=== PATIENT | male | born 1980 | race African-American/Black ===

== ENCOUNTER 2016-12-14 23:02 | Observation (INO) | payer MEDICAID ==
[~2016-12-14] VITALS: Ht 182.9 cm; Wt 88.0 kg
[~2016-12-14 23:02] MED LIST: ALBU.5I NEB; ALBUAER3 INH; MONT10TA2 PO; PRED20 PO; SYMB80AE INH
[2016-12-14 23:03] VITALS: BP 147/86; PULSE 109; RESP 20; TEMP 99.8; O2SAT 100
[2016-12-15] VITALS (9 sets, daily range): BP systolic 128–148; BP diastolic 63–96; PULSE 86–110; RESP 16–20; TEMP 97.5–99; O2SAT 93–99
[2016-12-15] MEDS ORDERED: methylPREDNISolone SOD SUCC 125 MG/2 ML VIAL IVP ONE
[2016-12-15] MEDS: RESP: ALBUTEROL 2.5 MG/IPRATROPIUM 0.5 MG NEB (SCH) INH ×2 (00:02→00:03)
--- NOTE | 2016-12-15 00:04 | RADRPT ---
EXAM DATE/TIME: 12/14/2016 23:45 [place] COMPARISON: CHEST SINGLE AP, July 18, 2016, 17:31. INDICATIONS : Chest pain. MEDICAL HISTORY : None. SURGICAL HISTORY : None. ENCOUNTER: Initial ACUITY: 3 days PAIN SCORE: 7/10 LOCATION: Bilateral chest FINDINGS: There is vague opacity in the medial right lung base and in the lateral left lung base, potentially e leo infiltrates. No evidence of effusion. Cardiac contours are satisfactory. CONCLUSION: Mild basilar parenchymal opacities Cornell Avalos MD on December 15, 2016 at 0:01 Board Certified Radiologist. This report was verified electronically.
--- NOTE | 2016-12-15 00:10 | PD ---
HPI Chief Complaint: Respiratory Symptoms Time Seen by Provider: 23:27 Travel History International Travel<30 days: No Contact w/Intl Traveler<30days: No Traveled to known affect area: No History of Present Illness HPI The patient is a 36 year old male who presents to the [facility] emergency department with a history of shortness of breath, wheezing, dry cough that began 3 days ago. The patient reports that he's had a subjective fever with a Tmax of 99.9. He reports that he ran out of his pro-air inhaler. He reports that he's had a history of asthma since childhood. He reports that he has been intubated in the past in 2013 related to an asthma exacerbation. He denies having any nasal discharge, sinus pressure, sore throat, or postnasal drip. The patient denies having any chest pain. The patient denies smoking. The patient denies any neck pain, chest pain, abdominal pain, vomiting, diarrhea, urinary symptoms, or neurologic symptoms. PFSH Past Medical History Narrative Medical The patient's past medical history is significant for asthma. Hx Anticoagulant Therapy: No Asthma: Yes Cardiovascular Problems: No Chemotherapy: No Cerebrovascular Accident: No Diabetes: No Diminished Hearing: No Hypertension: Yes Respiratory: Yes (ASTHMA) Immunizations Current: Yes Past Surgical History Narrative Surgical The patient's past surgical history is significant for a left leg ORIF. Social History Alcohol Use: Yes (3 DRINKS/WEEK) Tobacco Use: No Substance Use: No Allergies-Medications (Allergen,Severity, Reaction): Coded Allergies: No Known Allergies (Unverified , 12/14/16) Reported Meds & Prescriptions Reported Meds & Active Scripts Active Prednisone 20 Mg Tab 20 Mg PO BID 5 Days Proair Hfa 8.5 GM Inh (Albuterol Sulfate) 90 Mcg/Act Aer 2 Puff INH Q4-6H PRN 108 mcg/actuation Reported Symbicort Inh (Budesonide/Formoterol Fumarate) 80-4.5 Mcg/Act Aero 2 Puff INH Q12HR Singulair (Montelukast Sodium) 10 Mg Tab 10 Mg PO HS Proair Hfa 8.5 GM Inh (Albuterol Sulfate) 90 Mcg/Act Aer 2 Puff INH Q4-6H PRN 108 mcg/actuation Review of Systems Except as stated in HPI: all other systems reviewed are Neg General / Constitutional: No: Fever Eyes: No: Visual changes HENT: No: Headaches Cardiovascular: Positive: Dyspnea on exertion, No: Chest Pain or Discomfort Respiratory: Positive: Cough, Shortness of Breath, Wheezing Gastrointestinal: No: Abdominal Pain Genitourinary: No: Dysuria Musculoskeletal: No: Pain Skin: No Rash Neurologic: No: Weakness Psychiatric: No: Depression Endocrine: No: Polydipsia Hematologic/Lymphatic: No: Easy Bruising Physical Exam Narrative General: The patient is a well-developed well-nourished male, short of breath appearing on arrival with mild conversational dyspnea. Head and Neck exam: Head is normocephalic atraumatic. Eyes: EOMI, pupils are equal round and reactive to light. Nose: Midline septum with pink mucous membranes Mouth: Dentition unremarkable. Moist mucus membranes. Posterior oropharynx is not erythematous. No tonsillar hypertrophy. Uvula midline. Airway patent. Neck: No palpable lymphadenopathy. No nuchal rigidity. No thyromegaly. Cardiovascular: Regular rate and rhythm without murmurs, gallops, or rubs. Lungs: Expiratory wheezes are audible throughout all lung gann, equal breath sounds bilaterally. No rhonchi, no crackles. The patient does have some accessory muscle use. No tripoding or paroxysmal abdominal breathing. Abdomen: Soft, without tenderness to palpation in all 4 quadrants of the abdomen. No guarding, rebound, or rigidity. Normal bowel sounds are audible. No tenderness on palpation of McBurney's point. Extremities: No clubbing, cyanosis, or edema. 2+ pulses in all 4 extremities. No calf tenderness on palpation. Back: No costovertebral angle tenderness to palpation. Neurologic Exam: Grossly nonfocal. Skin Exam: No rash noted. Intact skin that is warm and dry. Data Data Last Documented VS Vital Signs Date Time Temp Pulse Resp B/P Pulse Ox O2 Delivery O2 Flow Rate FiO2 12/14/16 23:24 113 25 95 Room Air 12/14/16 23:03 99.8 147/86 Orders Complete Blood Count With Diff (12/14/16 23:47) Basic Metabolic Panel (Bmp) (12/14/16 23:47) C-Reactive Protein (Crp) (12/14/16 23:47) Magnesium (Mg) (12/14/16 23:47) Chest, Single Ap (12/14/16 23:47) Iv Access Insert/Monitor (12/14/16 23:47) Ecg Monitoring (12/14/16 23:47) Oximetry (12/14/16 23:47) Methylprednisolone So Succ Inj (Solumedr (12/15/16 00:00) Albuterol-Ipratropium Neb (Duoneb Neb) (12/15/16 00:00) Ceftriaxone Inj (Rocephin Inj) (12/15/16 00:30) Azithromycin Inj (Zithromax Inj) (12/15/16 00:30) Albuterol Neb (Albuterol Neb) (12/15/16 02:00) Labs Laboratory Tests Test 12/15/16 00:12 White Blood Count 9.9 TH/MM3 Red Blood Count 4.85 MIL/MM3 Hemoglobin 14.5 GM/DL Hematocrit 44.2 % Mean Corpuscular Volume 91.2 FL Mean Corpuscular Hemoglobin 29.9 PG Mean Corpuscular Hemoglobin 32.7 % Concent Red Cell Distribution Width 12.7 % Platelet Count 236 TH/MM3 Mean Platelet Volume 9.3 FL Neutrophils (%) (Auto) 77.3 % Lymphocytes (%) (Auto) 13.4 % Monocytes (%) (Auto) 5.8 % Eosinophils (%) (Auto) 3.2 % Basophils (%) (Auto) 0.3 % Neutrophils # (Auto) 7.7 TH/MM3 Lymphocytes # (Auto) 1.3 TH/MM3 Monocytes # (Auto) 0.6 TH/MM3 Eosinophils # (Auto) 0.3 TH/MM3 Basophils # (Auto) 0.0 TH/MM3 CBC Comment DIFF FINAL Differential Comment Sodium Level 139 MEQ/L Potassium Level 4.0 MEQ/L Chloride Level 104 MEQ/L Carbon Dioxide Level 27.8 MEQ/L Anion Gap 7 MEQ/L Blood Urea Nitrogen 7 MG/DL Creatinine 1.11 MG/DL Estimat Glomerular Filtration 91 ML/MIN Rate Random Glucose 120 MG/DL Calcium Level 9.3 MG/DL Magnesium Level 1.9 MG/DL C-Reactive Protein 12.60 MG/DL MDM Medical Decision Making Medical Screen Exam Complete: Yes Emergency Medical Condition: Yes Medical Record Reviewed: Yes Differential Diagnosis Asthma exacerbation, versus influenza, versus pneumonia Narrative Course During the course of the patients emergency department visit, the patients history, examination, and differential diagnosis were reviewed with the patient. The patient had IV access obtained and blood work sent for analysis. The patient was placed on a cardiac sonographer with oximetry and blood pressure monitoring. The patient was initially provided Solu-Medrol 125 mg IV, DuoNeb 3. The patient was reexamined after completing his DuoNeb nebs and was noted to have continued expiratory wheezes. The patient's O2 saturation on room air was 97%, however he reports feeling continually tight with trying to take a deep breath. The patient will be given an albuterol nebulizer treatment. The patient will be admitted to the hospital for asthma exacerbation. The patients laboratory studies were reviewed and remarkable for a white count of 9.9, hemoglobin 14.5, platelets 236 with neutrophils 77.3. Basic metabolic profile is remarkable for glucose of 120, C-reactive protein 12.6 Radiology studies were reviewed and remarkable for a chest x-ray that shows a mild basilar parenchymal opacity. The patients results were discussed with the patient, including the plan of care. I explained that further testing and/ or monitoring is indicated based on the patients history, examination, and/ or laboratory findings. Therefore, I recommended admission for additional evaluation. The patient expressed understanding and was agreeable with this plan. The patient was admitted to the hospital in stable condition and [facility] Diagnosis Primary Impression: Asthma exacerbation Additional Impression: Lung infiltrate Admitting Information Admitting Physician Requests: Ritu Shirley MD December 15, 2016 00:10
[2016-12-15 00:25] LABS: AUTOMATED NEUTROPHIL # 7.7 TH/MM3 (1.8-7.7); BASOPHIL % 0.3 % (0.0-2.0); EOSINOPHIL # 0.3 TH/MM3 (0-0.4); EOSINOPHIL % 3.2 % (0.0-4.0); HEMATOCRIT 44.2 % (39.0-51.0); HEMO FLAGS DIFF FINAL; LYMPH % 13.4 % (9.0-44.0); LYMPHOCYTE # 1.3 TH/MM3 (1.0-4.8); MEAN CELL VOLUME 91.2 FL (80.0-100.0); MEAN CORPUSCULAR HEMOGLOBIN 29.9 PG (27.0-34.0); MEAN CORPUSCULAR HGB CONC 32.7 % (32.0-36.0); MONO % 5.8 % (0.0-8.0); NEUT % 77.3 % (16.0-70.0); PLATELET COUNT 236 TH/MM3 (150-450); RED BLOOD COUNT 4.85 MIL/MM3 (4.50-5.90); RED CELL DISTRIBUTION WIDTH 12.7 % (11.6-17.2); WHITE BLOOD COUNT 9.9 TH/MM3 (4.0-11.0)
[2016-12-15] MEDS ORDERED: cefTRIAXone INJ 1,000 MG in SODIUM CHLORIDE 0.9% INJ 100 ML IV ONE (00:30)
[2016-12-15] MEDS ORDERED: AZITHROMYCIN INJ 500 MG in SODIUM CHLOR 0.9% 250 ML INJ 250 ML IV ONE (00:30)
[2016-12-15 01:00] LABS: BICARBONATE 27.8 MEQ/L (21.0-32.0); MAGNESIUM 1.9 MG/DL (1.5-2.5)
[2016-12-15] MEDS ORDERED: RESP: ALBUTEROL 2.5 MG/3 ML NEB (SCH) NEB ONE (02:00)
[2016-12-15] MEDS ORDERED: RESP: ALBUTEROL 2.5 MG/IPRATROPIUM 0.5 MG NEB (PRN) NEB (02:30)
[2016-12-15] MEDS ORDERED: NALOXONE HCL 0.4 MG/ML AMP IV PRN (02:30)
--- NOTE | 2016-12-15 03:47 | HHI.HP ---
[facility] Primary Care Physician Philip Nielson M.D. Admission Diagnosis Asthma exacerbation, basilar infiltrate Diagnoses: Chief Complaint: shortness of breath Travel History International Travel<30 Days: No Contact w/Intl Traveler <30 Da: No Traveled to Known Affected Are: No History of Present Illness History from patient, ER physician communication, and review of medical records. Patient reported that he came to the hospital because for the past 3 days, he has been getting short of breath. He reports he was wheezing constantly and had to use inhalers and finish them. He reports of low-grade fever. Denies any nausea or vomiting. He does have a cough which is nonproductive for most part. Denies any diarrhea. Denies burning urination or pain on urination. The patient has history of asthma. He was intubated in 2013 hospitalization. His last ER visit for asthma exacerbation was June 2016. Patient reports of compliance with medications. He states he takes Singulair, and inhaled corticosteroids. Review of Systems Except as stated in HPI: all other systems reviewed are Neg Past Family Social History Past Medical History Hypertensionno longer on medications. States his doctor took him off. He used to be on Norvasc and lisinopril. Asthmawith prior history of intubation in September 2013 Past Surgical History Multiple surgeries on left lower extremity at the age of 89 years old from trauma Reported Medications Patient's medications list on EMRreviewed Allergies: Coded Allergies: No Known Allergies (Unverified , 12/14/16) Family History Reports history of hypertension and heart disease Social History Denies smoking. However states that he is surrounded by smokers most of the time. denies any alcohol abuse or drug abuse. Physical Exam Vital Signs Vital Signs Date Time Temp Pulse Resp B/P Pulse Ox O2 Delivery O2 Flow Rate FiO2 12/15/16 03:05 97.5 110 18 132/96 99 12/15/16 02:42 105 18 137/63 97 Room Air 12/15/16 02:42 97 Room Air 12/14/16 23:24 113 25 95 Room Air 12/14/16 23:03 99.8 109 20 147/86 100 Room Air Physical Exam GENERAL: This is a well-nourished, well-developed patient, in no apparent distress. SKIN: No rashes, ecchymoses or lesions. Cool and dry. HEAD: Atraumatic. Normocephalic. No temporal or scalp tenderness. EYES: No scleral icterus. No injection or drainage. ENT: Nose without bleeding, purulent drainage or septal hematoma. Airway patent. NECK: Trachea midline. No JVD CARDIOVASCULAR: Regular rate and rhythm without murmurs, gallops, or rubs. RESPIRATORY: Bilateral expiratory wheezing throughout the lungs. No respiratory sensory muscle use. Abdomen: Soft, nontender, no rebound, no guarding MUSCULOSKELETAL: Extremities without clubbing, cyanosis, or edema. No calf tenderness. NEUROLOGICAL: Awake and alert. Motor and sensory grossly within normal limits. Normal speech. Laboratory Laboratory Tests Test 12/15/16 00:12 White Blood Count 9.9 Red Blood Count 4.85 Hemoglobin 14.5 Hematocrit 44.2 Mean Corpuscular Volume 91.2 Mean Corpuscular Hemoglobin 29.9 Mean Corpuscular Hemoglobin 32.7 Concent Red Cell Distribution Width 12.7 Platelet Count 236 Mean Platelet Volume 9.3 Neutrophils (%) (Auto) 77.3 Lymphocytes (%) (Auto) 13.4 Monocytes (%) (Auto) 5.8 Eosinophils (%) (Auto) 3.2 Basophils (%) (Auto) 0.3 Neutrophils # (Auto) 7.7 Lymphocytes # (Auto) 1.3 Monocytes # (Auto) 0.6 Eosinophils # (Auto) 0.3 Basophils # (Auto) 0.0 CBC Comment DIFF FINAL Differential Comment Sodium Level 139 Potassium Level 4.0 Chloride Level 104 Carbon Dioxide Level 27.8 Anion Gap 7 Blood Urea Nitrogen 7 Creatinine 1.11 Estimat Glomerular Filtration 91 Rate Random Glucose 120 Calcium Level 9.3 Magnesium Level 1.9 C-Reactive Protein 12.60 Result Diagram: 12/15/16 0012 12/15/16 0012 Imaging Last 48 hours Impressions Chest X-Ray 12/14/16 [id number] Signed Impressions: Service Date/Time: Wednesday, December 14, 2016 23:45 - CONCLUSION: Mild basilar parenchymal opacities Cornell Avalos MD Assessment and Plan Assessment and Plan Impression: Acute asthma exacerbation Plan: Nebulizers scheduled and when necessary. Solu-Medrol 40 mg IV every 6 hours. Continue inhaled corticosteroids. Patient will need prescription for this rescue inhalers upon discharge as he ran out of it. He would also need tapering doses of steroids upon discharge. Due to prophylaxiswith Lovenox. GI prophylaxis on pantoprazole. Discussed Condition With Patient, your physician, patient's nurse Patricia Hernandez MD December 15, 2016 03:47
[2016-12-15] MEDS: RESP: ALBUTEROL 2.5 MG/IPRATROPIUM 0.5 MG NEB (SCH) NEB ×6 (04:33→21:05)
[2016-12-15] MEDS: methylPREDNISolone SOD SUCC 40 MG/1 ML VIAL IV PUSH SCH ×4 (05:32→23:19)
[2016-12-15] MEDS ORDERED: LACTATED RINGER'S 1000 ML IV PRN (09:00)
[2016-12-15] MEDS ORDERED: METOPROLOL TARTRATE 25 MG TAB PO PRN (09:00)
[2016-12-15] MEDS ORDERED: CHLORHEXIDINE GLUCONATE 2 % 1 PACK (2 CLOTHS) TOPICAL PRN (09:00)
[2016-12-15] MEDS ORDERED: POVIDONE IODINE 5% (ANTISEPSIS KIT) 4 APPLICATIONS EACH NARE PRN (09:00)
[2016-12-15] MEDS ORDERED: SODIUM CHLORID 0.9% 500 ML IV PRN (09:00)
[2016-12-15] MEDS ORDERED: INSULIN HUMAN REGULAR 1,000 UNITS/10 ML VIAL SQ PRN (09:00)
--- NOTE | 2016-12-15 09:38 | HHI.PR ---
Subjective Remarks Follow up asthma exacerbation. Patient laying in bed, states he is not as short of breath as be was when he first came in. Still wheezing with a slight white productive cough. No fevers. Denies any chest pain or chills. Objective Vitals Vital Signs Date Time Temp Pulse Resp B/P Pulse Ox O2 Delivery O2 Flow Rate FiO2 12/15/16 07:39 97.8 86 16 128/86 96 12/15/16 06:01 91 12/15/16 04:41 99.0 93 20 141/82 93 12/15/16 03:05 97.5 110 18 132/96 99 12/15/16 02:42 105 18 137/63 97 Room Air 12/15/16 02:42 97 Room Air 12/14/16 23:24 113 25 95 Room Air 12/14/16 23:03 99.8 109 20 147/86 100 Room Air Result Diagram: 12/15/16 0012 12/15/16 0012 Imaging Last Impressions Chest X-Ray 12/14/16 [id number] Signed Impressions: Service Date/Time: Wednesday, December 14, 2016 23:45 - CONCLUSION: Mild basilar parenchymal opacities Cornell Avalos MD Objective Remarks GENERAL: Well nourished male who is in NAD SKIN: Warm and dry. HEAD: Atraumatic. Normocephalic. EYES: Pupils equal and round. No scleral icterus. No injection or drainage. ENT: No nasal bleeding or discharge. Mucous membranes pink and moist. NECK: Trachea midline. No JVD. CARDIOVASCULAR: Regular rate and rhythm. RESPIRATORY: Tight breath sounds, wheezing throughout GASTROINTESTINAL: Abdomen soft, non-tender, nondistended. Hepatic and splenic margins not palpable. MUSCULOSKELETAL: Extremities without clubbing, cyanosis, or edema. No obvious deformities. NEUROLOGICAL: Awake and alert. Motor grossly within normal limits. Normal speech. PSYCHIATRIC: Appropriate mood and affect; insight and judgment normal. Medications and IVs Current Medications Medications (Trade) Dose Ordered Sig/Susan Route Start Time Stop Time Status Last Admin (NS Flush) 2 ml UNSCH PRN IV FLUSH 12/15/16 02:30 (NS Flush) 2 ml BID IV FLUSH 12/15/16 09:00 (Narcan Inj) 0.4 mg UNSCH PRN IV 12/15/16 02:30 (SoluMEDROL INJ) 40 mg Q6HR IV PUSH 12/15/16 06:00 12/15/16 05:32 (Protonix) 40 mg DAILY PO 12/15/16 09:00 (Symbicort 80-4.5 Mcg Inh) 2 puff Q12HR INH 12/15/16 09:00 (Singulair) 10 mg HS PO 12/15/16 21:00 Urinary Catheter: No Vascular Central Line Catheter: No A/P Problem List: (1) Asthma exacerbation ICD Code: J45.901 Status: Acute Assessment and Plan 36 y/o male with a history of asthma presented to the ED with complaints of 3 days of shortness of breath. Acute Asthma exacerbation, suspect mild pneumonia, productive cough with congestion Chest x ray shows mild basilar parenchymal opacities -Start Levaquin PO daily for 5 days -Cont Solumedol IV -Increase duonebs to Q4hr, patient is tight and wheezing throughout -Continue home inhaled corticosteroids. -Patient will need prescription for this rescue inhalers upon discharge as he ran out of it. -He would also need tapering doses of steroids upon discharge. DVT prophylaxis: SCDs GI prophylaxis: protonix Tara Monreal December 15, 2016 09:38
[2016-12-15] MEDS: LEVOFLOXACIN 750 MG TAB PO SCH (10:04)
[2016-12-15] MEDS: BUDESONIDE-FORMOTEROL 80/4.5 MCG INHALER INH SCH ×2 (10:05→21:15)
[2016-12-15] MEDS: SODIUM CHLORIDE 0.9% FLUSH 10 ML FLUSH IV FLUSH SCH ×2 (10:05→21:15)
[2016-12-15] MEDS: PANTOPRAZOLE SOD 40 MG DELAYED RELEASE TAB PO SCH (10:05)
[2016-12-15] MEDS ORDERED: MONTELUKAST SODIUM 10 MG TAB PO SCH (21:00)
[2016-12-15] MEDS: SODIUM CHLORIDE 0.9% FLUSH 10 ML FLUSH IV FLUSH PRN (23:19)
[2016-12-16] MEDS: RESP: ALBUTEROL 2.5 MG/IPRATROPIUM 0.5 MG NEB (SCH) NEB ×4 (00:07→11:40)
[2016-12-16 00:18] VITALS: BP 136/74; PULSE 92; RESP 18; TEMP 96.2; O2SAT 96
[2016-12-16] MEDS: SODIUM CHLORIDE 0.9% FLUSH 10 ML FLUSH IV FLUSH PRN (05:11)
[2016-12-16] MEDS: methylPREDNISolone SOD SUCC 40 MG/1 ML VIAL IV PUSH SCH ×2 (05:11→12:22)
[2016-12-16 05:23] LABS: AUTOMATED NEUTROPHIL # 13.2 TH/MM3 (1.8-7.7); BASOPHIL # 0.2 TH/MM3 (0-0.2); BASOPHIL % 1.2 % (0.0-2.0); EOSINOPHIL % 0.1 % (0.0-4.0); HEMATOCRIT 41.8 % (39.0-51.0); HEMO FLAGS DIFF FINAL; LYMPH % 4.9 % (9.0-44.0); LYMPHOCYTE # 0.7 TH/MM3 (1.0-4.8); MEAN CELL VOLUME 91.5 FL (80.0-100.0); MEAN CORPUSCULAR HEMOGLOBIN 29.5 PG (27.0-34.0); MEAN CORPUSCULAR HGB CONC 32.3 % (32.0-36.0); MONO % 2.3 % (0.0-8.0); NEUT % 91.5 % (16.0-70.0); PLATELET COUNT 228 TH/MM3 (150-450); RED BLOOD COUNT 4.57 MIL/MM3 (4.50-5.90); RED CELL DISTRIBUTION WIDTH 12.8 % (11.6-17.2); WHITE BLOOD COUNT 14.4 TH/MM3 (4.0-11.0)
[2016-12-16 05:26] VITALS: BP 118/65; PULSE 87; RESP 18; TEMP 97.6; O2SAT 98
[2016-12-16 06:02] LABS: ALKALINE PHOSPHATASE 69 U/L (45-117); TOTAL BILIRUBIN ADULT 0.3 MG/DL (0.2-1.0)
[2016-12-16 06:04] LABS: ALT (GPT) 22 U/L (12-78); ANION GAP 8 MEQ/L (5-15); AST (GOT) 17 U/L (15-37); BICARBONATE 25.9 MEQ/L (21.0-32.0); BLOOD UREA NITROGEN 11 MG/DL (7-18); CHLORIDE 105 MEQ/L (98-107); GLOMERULAR FILTRATION RATE 102 ML/MIN (>89); SODIUM (NA) 139 MEQ/L (136-145)
[2016-12-16 06:16] LABS: POTASSIUM 4.8 MEQ/L (3.5-5.1)
[2016-12-16 08:00] VITALS: BP 124/69; PULSE 77; RESP 20; TEMP 95.9; O2SAT 92
[2016-12-16] MEDS: PANTOPRAZOLE SOD 40 MG DELAYED RELEASE TAB PO SCH (08:12)
[2016-12-16] MEDS: LEVOFLOXACIN 750 MG TAB PO SCH (08:12)
[2016-12-16] MEDS: BUDESONIDE-FORMOTEROL 80/4.5 MCG INHALER INH SCH (08:13)
[2016-12-16] MEDS: SODIUM CHLORIDE 0.9% FLUSH 10 ML FLUSH IV FLUSH SCH (08:13)
--- NOTE | 2016-12-16 08:38 | HHI.PR ---
Subjective Remarks Follow up asthma exacerbation. Patient laying in bed resting, states he is feeling a lot better. Denies any chest pain, fever or chills. Eating well, no nausea or vomiting. Objective Vitals Vital Signs Date Time Temp Pulse Resp B/P Pulse Ox O2 Delivery O2 Flow Rate FiO2 12/16/16 05:26 97.6 87 18 118/65 98 12/16/16 00:18 96.2 92 18 136/74 96 12/15/16 19:57 97.6 86 138/69 97 12/15/16 15:14 98.4 96 20 130/73 96 12/15/16 11:11 97.7 96 18 148/78 96 I/O 12/15/16 12/15/16 12/15/16 12/16/16 12/16/16 12/16/16 07:00 15:00 23:00 07:00 15:00 23:00 Intake Total 240 ml 1500 ml Balance 240 ml 1500 ml Intake Oral 240 ml 1500 ml # Voids 1 1 2 Result Diagram: 12/16/16 0507 12/16/16 050 Imaging Last Impressions Chest X-Ray 12/14/162346 Signed Impressions: Service Date/Time: Wednesday, December 14, 2016 23:45 - CONCLUSION: Mild basilar parenchymal opacities Cornell Avalos MD Objective Remarks GENERAL: Well nourished male who is in NAD SKIN: Warm and dry. HEAD: Atraumatic. Normocephalic. EYES: Pupils equal and round. No scleral icterus. No injection or drainage. ENT: No nasal bleeding or discharge. Mucous membranes pink and moist. NECK: Trachea midline. No JVD. CARDIOVASCULAR: Regular rate and rhythm. RESPIRATORY: Slight wheezing in left upper lobe, diminished in bases. GASTROINTESTINAL: Abdomen soft, non-tender, nondistended. Hepatic and splenic margins not palpable. MUSCULOSKELETAL: Extremities without clubbing, cyanosis, or edema. No obvious deformities. NEUROLOGICAL: Awake and alert. Motor grossly within normal limits. Normal speech. PSYCHIATRIC: Appropriate mood and affect; insight and judgment normal. Medications and IVs Last Impressions Chest X-Ray 12/14/162346 Signed Impressions: Service Date/Time: Wednesday, December 14, 2016 23:45 - CONCLUSION: Mild basilar parenchymal opacities Cornell Avalos MD Urinary Catheter: No Vascular Central Line Catheter: No A/P Problem List: (1) Asthma exacerbation ICD Code: J45.901 Status: Acute (2) Leukocytosis ICD Code: D72.829 Status: Acute Assessment and Plan 36 y/o male with a history of asthma presented to the ED with complaints of 3 days of shortness of breath. Acute Asthma exacerbation, suspect mild pneumonia, productive cough with congestion Chest x ray shows mild basilar parenchymal opacities -Cont Levaquin PO daily for 5 days -Cont Solumedol IV -Con duonebs to Q4hr -Continue home inhaled corticosteroids. -Incentive spirometer ordered -Patient will need prescription for this rescue inhalers upon discharge as he ran out of it. -He would also need tapering doses of steroids upon discharge. Leukocytosis, suspected related to steroids, no fevers -Cont antibiotics as above -Cont to monitor DVT prophylaxis: SCDs GI prophylaxis: protonix Discharge patient to home Condition on discharge: Stable Regular Diet as tolerated Ad Emelyn activity Rx written: Levaquin 750mg x 3 day, prednisone taper Follow-up with primary care physician in 3-5 days Patient is stable for discharge, he verbalizes understanding of medications and follow up. Discharge Planning Likely today Tara Monreal December 16, 2016 08:38
[2016-12-16] MEDS ORDERED: ALBUTEROL SULFATE 90 MCG/ACT HFA 18 GM INHALER INH PRN (08:45)
[2016-12-16 12:00] VITALS: BP 143/80; PULSE 92; RESP 20; TEMP 96.5; O2SAT 96
[2016-12-16] MEDS ORDERED: LEVO750T3 PO (13:59)
--- NOTE | 2016-12-16 14:00 | HHI.DCPOC ---
Discharge Care Plan Diagnosis: (1) Asthma exacerbation (2) Leukocytosis Goals to Promote Your Health * To prevent worsening of your condition and complications * To maintain your health at the optimal level Directions to Meet Your Goals Take your medications as prescribed Follow your dietary instruction Follow activity as directed Keep your appointments as scheduled Take your immunizations and boosters as scheduled If your symptoms worsen call your PCP, if no PCP go to Urgent Care Center or Emergency Room Smoking is Dangerous to Your Health. Avoid second hand smoke Call the 24-hour hour crisis hotline for domestic abuse at Tara Monreal December 16, 2016 14:00
[2016-12-16] MEDS ORDERED: PRED10 PO (14:26)
== END 2016-12-16 15:18 | disposition home or self-care (01) ==
LOC: NEPC 23:02 → NEDA 12-15 02:04 → NEPFCDU 12-15 03:02
PROVIDERS: ADMIT Internal Medicine; ATTEND Internal Medicine
DX: J45.901 Unspecified asthma with (acute) exacerbation (principal); D72.829 Elevated white blood cell count, unspecified; I10 Essential (primary) hypertension; Z79.51 Long term (current) use of inhaled steroids; R91.8 Other nonspecific abnormal finding of lung field
CPT/HCPCS: 71010; 80048; 80053; 83735; 85025; 86140; 94150; 94640; 94664; 96374; 96375; 99285; G0378; J0456; J0696; J2920; J2930; J7050; J7613

== ENCOUNTER 2017-08-03 11:40 | Emergency (ER) | payer SELFPAY ==
[~2017-08-03 11:40] MED LIST changes: -ALBU.5I NEB; +LEVO750T3 PO; +PRED10 PO; -PRED20 PO
[2017-08-03 11:43] VITALS: BP 127/84; PULSE 95; RESP 16; TEMP 98.6; O2SAT 97
[2017-08-03] MEDS ORDERED: ALBU0.08 NEB (12:40)
[2017-08-03] MEDS ORDERED: SYMB80AE INH (13:20)
[2017-08-03] MEDS ORDERED: ALBUAER3 INH (13:20)
[2017-08-03] MEDS ORDERED: PRED20 PO (13:20)
--- NOTE | 2017-08-03 13:21 | PD ---
HPI Chief Complaint: Respiratory Symptoms Time Seen by Provider: 12:55 Travel History International Travel<30 days: No Contact w/Intl Traveler<30days: No Traveled to known affect area: No History of Present Illness HPI This is a 36-year-old male here with mild upper respiratory-like illness. Patient is an asthmatic and reports he ran out of his albuterol and Symbicort several days ago. He is requesting refill. He is reporting intermittent episodes of wheezing. No shortness of breath. No fever or chills. Symptom severity is mild. No aggravating or alleviating factors. PFSH Past Medical History Hx Anticoagulant Therapy: No Asthma: Yes Blood Disorders: No Heart Rhythm Problems: No Cancer: No Cardiovascular Problems: Yes High Cholesterol: No Chemotherapy: No Chest Pain: No Congestive Heart Failure: No COPD: No Cerebrovascular Accident: No Diabetes: No Diminished Hearing: No Endocrine: No Genitourinary: No Hypertension: Yes Immune Disorder: No Musculoskeletal: No Neurologic: No Psychiatric: No Reproductive: No Respiratory: Yes (ASTHMA) Immunizations Current: Yes Sleep Apnea: No Thyroid Disease: No Social History Alcohol Use: Yes (3 DRINKS/WEEK) Tobacco Use: No Substance Use: No Allergies-Medications (Allergen,Severity, Reaction): Coded Allergies: No Known Allergies (Unverified Adverse Reaction, Unknown, 08/03/17) Reported Meds & Prescriptions Reported Meds & Active Scripts Active Reported Albuterol Neb (Albuterol Sulfate) 2.5 Mg/3 Ml Neb 2.5 Mg NEB QID NEB Singulair (Montelukast Sodium) 10 Mg Tab 10 Mg PO HS Review of Systems Except as stated in HPI: all other systems reviewed are Neg General / Constitutional: No: Fever Eyes: No: Visual changes HENT: No: Headaches Cardiovascular: No: Chest Pain or Discomfort Respiratory: Positive: Cough, Wheezing Gastrointestinal: No: Abdominal Pain Genitourinary: No: Dysuria Physical Exam Narrative GENERAL: Alert and well-appearing 36-year-old male. No distress. SKIN: Warm and dry. HEAD: Normocephalic. EYES: No injection or drainage. Ears/nose/throat: Clear nasal discharge. No oropharyngeal erythema, tonsillar hypertrophy or exudate. NECK: Supple, trachea midline. CARDIOVASCULAR: Regular rate and rhythm without murmurs, gallops, or rubs. RESPIRATORY: Breath sounds equal bilaterally. No accessory muscle use. Diffuse scattered expiratory wheezes that clears with cough. No respiratory distress. GASTROINTESTINAL: Abdomen soft, non-tender, nondistended. MUSCULOSKELETAL: No cyanosis, or edema. Data Data Last Documented VS Vital Signs Date Time Temp Pulse Resp B/P (MAP) Pulse Ox O2 Delivery O2 Flow Rate FiO2 08/03/17 11:43 98.6 95 16 127/84 (98) 97 MDM Medical Decision Making Medical Screen Exam Complete: Yes Emergency Medical Condition: Yes Differential Diagnosis URI, bronchitis, asthma exacerbation Narrative Course This is a 36-year-old male with history of asthma here for evaluation of a mild URI and wheezing 2 days. He has scattered expiratory wheezes. No respiratory distress. 97% on room air. He was offered a breathing treatment but declined he is requesting his albuterol and Symbicort be refill. He is well-appearing. Vital signs are stable. He will also be discharged home on a five-day course of steroids. Diagnosis Primary Impression: URI (upper respiratory infection) Qualified Codes: J06.9 - Acute upper respiratory infection, unspecified; B97.89 - Other viral agents as the cause of diseases classified elsewhere Additional Impression: Asthma Qualified Codes: J45.998 - Other asthma [facility]errals: [facility] Additional Instructions: Steroids as directed. Albuterol inhaler a acted. Symbicort as directed. Follow-up with her primary doctor. Scripts Budesonide-Formoterol Inh (Symbicort Inh) 80-4.5 Mcg/Act Aero 1 PUFF INH Q12HR for Asthma Management, #1 INHALER 0 Refills Prov: Sherri Reina 08/03/17 Prednisone (Prednisone) 20 Mg Tab 40 MG PO DAILY, #10 TAB 0 Refills Take 40 mg (2 tablets) daily for 5 days Prov: Sherri Reina 08/03/17 Albuterol 8.5 GM Inh (Proair Hfa 8.5 GM Inh) 90 Mcg/Act Aer 2 PUFF INH Q4-6H Y for SHORTNESS OF BREATH, #1 INHALER 0 Refills 108 mcg/actuation Prov: Sherri Reina 08/03/17 Disposition: 01 DISCHARGE HOME Condition: Stable Sherri Reina Aug 03, 2017 13:21
== END 2017-08-03 13:27 | disposition home or self-care (01) ==
LOC: NEPK 11:40
DX: J06.9 Acute upper respiratory infection, unspecified (principal); B97.89 Other viral agents as the cause of diseases classified elsewhere; J45.998 Other asthma
CPT/HCPCS: 99284